=== PATIENT | female | born 1975 | race Caucasian/White ===

== ENCOUNTER 2020-08-18 21:14 | Emergency (ER) | payer SELFPAY ==
[~2020-08-18] VITALS: Ht 165.1 cm; Wt 72.0 kg
[2020-08-19] MEDS ORDERED: VOLTAREN - GENE75 MG PO (01:27)
[2020-08-19] MEDS ORDERED: TRAMADOL HCL50 MG PO (01:27)
[2020-08-19 01:30] VITALS: BP 162/92
== END 2020-08-19 01:35 | disposition home or self-care (01) | DRG 563 ==
LOC: ED 21:14
PROC: 0RSKXZZ Reposition Left Shoulder Joint, External Approach (ICD-10-PCS; principal; 2020-08-18)
DX: S43.015A Anterior dislocation of left humerus, initial encounter (principal); I10 Essential (primary) hypertension; V18.0XXA Pedal cycle driver injured in noncollision transport accident in nontraffic accident, initial encounter; Y93.55 Activity, bike riding; Y92.410 Unspecified street and highway as the place of occurrence of the external cause

== ENCOUNTER 2021-10-05 15:48 | Emergency (ER) | payer OTHER ==
[~2021-10-05] VITALS: Ht 165.1 cm; Wt 62.0 kg
[~2021-10-05 15:48] MED LIST: TRAMADOL HCL50 MG PO; VOLTAREN - GENE75 MG PO
[2021-10-05] MEDS ORDERED: DOXYCYC MONO100 M2 PO (18:05)
[2021-10-05 18:24] VITALS: BP 205/118
== END 2021-10-05 18:43 | disposition home or self-care (01) | DRG 125 ==
LOC: ED 15:48
PROC: 0HQ1XZZ Repair Face Skin, External Approach (ICD-10-PCS; principal; 2021-10-05)
DX: S01.112A Laceration without foreign body of left eyelid and periocular area, initial encounter (principal); I10 Essential (primary) hypertension; F17.200 Nicotine dependence, unspecified, uncomplicated; V13.4XXA Pedal cycle driver injured in collision with car, pick-up truck or van in traffic accident, initial encounter

== ENCOUNTER 2021-10-24 17:22 | Emergency (ER) | payer OTHER ==
[~2021-10-24] VITALS: Ht 165.1 cm; Wt 70.0 kg
[~2021-10-24 17:22] MED LIST changes: +DOXYCYC MONO100 M2 PO
[2021-10-24 20:52] VITALS: BP 146/92
== END 2021-10-24 20:52 | disposition home or self-care (01) | DRG 605 ==
LOC: ED 17:22
DX: S00.83XA Contusion of other part of head, initial encounter (principal); I10 Essential (primary) hypertension; F17.200 Nicotine dependence, unspecified, uncomplicated; V13.4XXA Pedal cycle driver injured in collision with car, pick-up truck or van in traffic accident, initial encounter

== ENCOUNTER 2022-05-21 10:22 | Emergency (ER) | payer SELFPAY ==
[~2022-05-21] VITALS: Ht 165.1 cm; Wt 67.3 kg
[2022-05-21 10:28] VITALS: BP 125/94
[2022-05-21 11:00] VITALS: BP 134/90
[2022-05-21 11:31] VITALS: BP 101/79
[2022-05-21 11:50] VITALS: BP 101/79
== END 2022-05-21 12:14 | disposition home or self-care (01) | DRG 563 ==
LOC: ED 10:22
PROC: 2W3CX1Z Immobilization of Right Lower Arm using Splint (ICD-10-PCS; principal; 2022-05-21)
DX: S52.124A Nondisplaced fracture of head of right radius, initial encounter for closed fracture (principal); I10 Essential (primary) hypertension; E03.9 Hypothyroidism, unspecified; F17.210 Nicotine dependence, cigarettes, uncomplicated; W01.0XXA Fall on same level from slipping, tripping and stumbling without subsequent striking against object, initial encounter; Y92.009 Unspecified place in unspecified non-institutional (private) residence as the place of occurrence of the external cause

== ENCOUNTER 2023-04-09 13:40 | Emergency (ER) | payer SELFPAY ==
[~2023-04-09] VITALS: Ht 165.1 cm; Wt 67.0 kg
[2023-04-09] MEDS ORDERED: DOXY-CAPS100 MG PO ×2 (13:50→13:56)
[2023-04-09 13:54] VITALS: BP 116/78
[2023-04-09 14:00] VITALS: BP 113/75
== END 2023-04-09 14:05 | disposition home or self-care (01) | DRG 603 ==
LOC: ED 13:40
DX: L03.113 Cellulitis of right upper limb (principal); I10 Essential (primary) hypertension; E03.9 Hypothyroidism, unspecified; F17.200 Nicotine dependence, unspecified, uncomplicated

== ENCOUNTER 2023-04-15 16:35 | Emergency (ER) | payer SELFPAY ==
[2023-04-15] VITALS (7 sets, daily range): BP systolic 107–124; BP diastolic 60–81
[~2023-04-15] VITALS: Ht 165.1 cm; Wt 69.0 kg
[~2023-04-15 16:35] MED LIST changes: +DOXY-CAPS100 MG PO
[2023-04-15] MEDS ORDERED: CEPHALEXIN500 MG PO (17:07)
== END 2023-04-15 17:45 | disposition home or self-care (01) | DRG 603 ==
LOC: ED 16:35
DX: L03.115 Cellulitis of right lower limb (principal); I10 Essential (primary) hypertension; E03.9 Hypothyroidism, unspecified; F17.210 Nicotine dependence, cigarettes, uncomplicated

== ENCOUNTER 2024-05-14 09:48 | Emergency (ER) | payer SELFPAY ==
[2024-05-14] VITALS (12 sets, daily range): BP systolic 106–128; BP diastolic 73–91
[~2024-05-14] VITALS: Ht 165.1 cm; Wt 72.0 kg
[~2024-05-14 09:48] MED LIST changes: +CEPHALEXIN500 MG PO; +IBUPROFEN600 MG PO; +METRONIDAZOLE500 MG PO; +NAPROXEN500 MG PO; +PREDNISONE50 MG PO; +TRAMADOL HYDROC50 M1 PO; +VENTOLIN HFA108 MCG PO; +ZPAK PO
[2024-05-14] MEDS ORDERED: ASPIRIN 81 MG/TAB PO ONE (10:05)
[2024-05-14 10:12] LABS: BASO% 0.5 % (0-3); EOS% 5.3 % (0-8); HEMATOCRIT 43.3 % (37.0-47.0); HEMOGLOBIN 14.6 g/dl (12.0-16.0); IMMATURE GRANULOCYTES 0.3 % (0.0-5.0); MEAN CELL VOLUME 86.3 fL CALC (80.0-100.0); MEAN CORPUSCULAR HGB 29.1 pG CALC (26.0-32.0); MEAN CORPUSCULAR HGB CONC 33.7 g/dL CAL (32.0-36.0); MONO% 7.1 % (2-13); NEUT# 2.89 thou/uL (2.00-7.15); NEUT% 46.8 % (42-76); RED BLOOD COUNT 5.02 mill/uL (4.20-5.60)
[2024-05-14 10:28] LABS: ALBUMIN 4.5 g/dL (3.2-5.0); ALKALINE PHOSPHATASE 69 u/l (38-126); ANION GAP 10 (6-22 (CALC)); BILIRUBIN, TOTAL 0.8 mg/dL (0.02-1.3); BUN 13 mg/dL (7-17); BUN/CREATININE RATIO 15 (12-20 (CALC)); CARBON DIOXIDE 23 mmol/l (22-30); CHLORIDE 112 mmol/l (95-108); CREATININE 0.9 mg/dL (0.5-1.0); ESTIMATED GFR 79 ML/MIN (>=90 (CALC)); POTASSIUM 4.1 mmol/l (3.5-5.1); SGOT/AST 26 u/l (14-36); SODIUM 141 mmol/l (137-146); TOTAL PROTEIN 7.9 g/dL (6.3-8.2)
== END 2024-05-14 12:40 | disposition left against medical advice (07) | DRG 313 ==
LOC: ED 09:48
PROVIDERS: Family Medicine
DX: R07.9 Chest pain, unspecified (principal); R94.31 Abnormal electrocardiogram [ECG] [EKG]; I10 Essential (primary) hypertension; E03.9 Hypothyroidism, unspecified; J45.909 Unspecified asthma, uncomplicated; Z53.29 Procedure and treatment not carried out because of patient's decision for other reasons; Z72.0 Tobacco use

== ENCOUNTER 2024-11-27 08:57 | Emergency (ER) | payer SELFPAY ==
[~2024-11-27] VITALS: Ht 165.1 cm; Wt 85.0 kg
[2024-11-27] VITALS (13 sets, daily range): BP systolic 157–185; BP diastolic 89–109
[~2024-11-27 08:57] MED LIST changes: +PREDNISONE20 MG PO; +VENTOLIN HFA108 MCG INHW/SPAC
[2024-11-27] MEDS ORDERED: HYDROcodone/Acetaminophen 1 COMBO TAB PO ONE (09:30)
[2024-11-27 09:56] LABS: BASO% 0.3 % (0-3); EOS% 1.8 % (0-8); HEMATOCRIT 44.1 % (37.0-47.0); HEMOGLOBIN 14.4 g/dl (12.0-16.0); IMMATURE GRANULOCYTES 0.3 % (0.0-5.0); LYMPH% 15.3 % (15-41); MEAN CELL VOLUME 88.2 fL CALC (80.0-100.0); MEAN CORPUSCULAR HGB 28.8 pG CALC (26.0-32.0); MEAN CORPUSCULAR HGB CONC 32.7 g/dL CAL (32.0-36.0); MONO% 6.5 % (2-13); NEUT# 7.57 thou/uL (2.00-7.15); NEUT% 75.8 % (42-76); RED CELL DISTRI WIDTH 12.8 % (11.5-15.5)
[2024-11-27 10:10] LABS: POTASSIUM 3.7 mmol/l (3.5-5.1)
[2024-11-27] MEDS ORDERED: LORTAB 5/3255 MG PO (10:15)
== END 2024-11-27 10:23 | disposition home or self-care (01) | DRG 556 ==
LOC: ED 08:57
PROVIDERS: Family Medicine
PROC: 0S9C3ZZ Drainage of Right Knee Joint, Percutaneous Approach (ICD-10-PCS; principal; 2024-11-27)
DX: M25.561 Pain in right knee (principal); M25.461 Effusion, right knee; I10 Essential (primary) hypertension; E03.9 Hypothyroidism, unspecified; J45.909 Unspecified asthma, uncomplicated; F17.200 Nicotine dependence, unspecified, uncomplicated

== ENCOUNTER 2025-01-05 05:56 | Emergency (ER) | payer OTHER ==
[~2025-01-05] VITALS: Ht 165.1 cm; Wt 76.0 kg
[~2025-01-05 05:56] MED LIST changes: +LORTAB 5/3255 MG PO
[2025-01-05 06:01] VITALS: BP 145/103
[2025-01-05] MEDS ORDERED: ALBUTEROL SULFATE 8 GM INH INHW/SPAC ONE (06:05)
[2025-01-05] MEDS ORDERED: DECADRON4 MG PO (06:19)
[2025-01-05 06:20] VITALS: BP 145/86
[2025-01-05 06:23] VITALS: BP 145/86
== END 2025-01-05 06:25 | disposition home or self-care (01) | DRG 203 ==
LOC: ED 05:56
DX: J45.901 Unspecified asthma with (acute) exacerbation (principal); I10 Essential (primary) hypertension; E03.9 Hypothyroidism, unspecified; F17.290 Nicotine dependence, other tobacco product, uncomplicated

== ENCOUNTER 2025-01-13 23:20 | Emergency (ER) | payer OTHER ==
[~2025-01-13] VITALS: Ht 165.1 cm; Wt 81.0 kg
[~2025-01-13 23:20] MED LIST changes: +DECADRON4 MG PO
[2025-01-13 23:26] VITALS: BP 158/99
[2025-01-13] MEDS ORDERED: AZITHROMYCIN 250 MG/TAB PO ONE (23:30)
[2025-01-13] MEDS ORDERED: BENZONATATE 200 MG/CAP PO ONE (23:30)
[2025-01-13] MEDS ORDERED: IPRATROPIUM-Albuterol 0.5MG-2.5MG/3 ML NEB ONE (23:30)
[2025-01-14] MEDS ORDERED: BENZONATATE200 MG PO (00:49)
[2025-01-14] MEDS ORDERED: AZITHROMYCIN500 MG PO (00:49)
[2025-01-14] MEDS ORDERED: PROAIR RES108 MCG/AC IN (00:49)
[2025-01-14] MEDS ORDERED: BENZONATATE 200 MG/CAP PO ONE (00:50)
[2025-01-14 01:10] VITALS: BP 158/99
== END 2025-01-14 01:10 | disposition home or self-care (01) | DRG 206 ==
LOC: ED 23:20
DX: J98.8 Other specified respiratory disorders (principal); B97.29 Other coronavirus as the cause of diseases classified elsewhere; I10 Essential (primary) hypertension; E03.9 Hypothyroidism, unspecified; J45.909 Unspecified asthma, uncomplicated; Z72.0 Tobacco use; Z20.822 Contact with and (suspected) exposure to COVID-19